=== PATIENT | male | born 1990 | race Two or more races ===

== ENCOUNTER 2023-04-01 00:40 | Emergency (ER) | payer BC, OTHER ==
[2023-04-01 00:50] VITALS: BP 119/72; RESP 20; BMI 36.8
[2023-04-01] MEDS ORDERED: SODIUM CHLORIDE 1,000 ML IV STA (02:14)
[2023-04-01] MEDS ORDERED: ACETAMINOPHEN 1000 MG/100 ML BAG IVPB ONE (02:14)
[2023-04-01] MEDS ORDERED: METOCLOPRAMIDE HCL INJECTION 10 MG/2 ML VIAL IVPUSH ONE (02:14)
[2023-04-01] MEDS ORDERED: ACETAMINOPHEN INJECTION 100 ML IVPB ONE (02:57)
[2023-04-01] MEDS ORDERED: METOCLOPRAMIDE HCL INJECTION 10 MG/2 ML VIAL ONE (02:57)
[2023-04-01 03:31] LABS: BASO % 0.5 % (0-2.0); EOS % 0.3 % (0-4.5); HEMATOCRIT 38.8 % (35.4-49); HEMOGLOBIN 13.6 GM/dL (11.7-16.9); LYMPH % 39.5 % (8-40); MCH 27.8 pg (25.7-33.7); MCHC 34.9 g/dl (32.0-35.9); MEAN CELL VOLUME 79.6 fl (80-96); MEAN PLT VOLUME 7.9 fl (7.5-11.1); MONO % 11.9 % (3.8-10.2); NEUT % 47.8 % (42.8-82.8); PLATELET COUNT 231 10^3/uL (134-434); RBC 4.88 M/mm3 (4.00-5.60); RDW 12.7 % (11.9-15.9); WHITE BLOOD COUNT 4.5 K/mm3 (4.0-10.0)
[2023-04-01 04:01] VITALS: TEMP 99.7
[2023-04-01 04:19] LABS: POTASSIUM 4.1 mmol/L (3.5-5.1)
[2023-04-01 04:22] LABS: CALCIUM 8.6 mg/dL (8.5-10.1)
[2023-04-01 04:23] LABS: ALBUMIN 3.8 g/dl (3.4-5.0); BLOOD UREA NITROGEN 13.1 mg/dL (7-18)
[2023-04-01 04:26] LABS: CREATININE 0.9 mg/dL (0.55-1.3)
[2023-04-01 04:27] LABS: TOT PROT 7.3 g/dl (6.4-8.2)
[2023-04-01 04:28] LABS: BILIRUBIN,TOTAL 0.6 mg/dL (0.2-1)
[2023-04-01 06:01] VITALS: PULSE 86
== END 2023-04-01 06:02 | disposition home or self-care (01) ==
LOC: JER 00:40
PROC: 3E033NZ Introduction of Analgesics, Hypnotics, Sedatives into Peripheral Vein, Percutaneous Approach (ICD-10-PCS; principal; 2023-04-01)
PROC: 3E033GC Introduction of Other Therapeutic Substance into Peripheral Vein, Percutaneous Approach (ICD-10-PCS; 2023-04-01)
PROC: 3E0337Z Introduction of Electrolytic and Water Balance Substance into Peripheral Vein, Percutaneous Approach (ICD-10-PCS; 2023-04-01)
DX: R51.9 Headache, unspecified (principal); M79.10 Myalgia, unspecified site; M25.50 Pain in unspecified joint; R50.9 Fever, unspecified; R11.0 Nausea; R26.81 Unsteadiness on feet; R00.0 Tachycardia, unspecified; R53.1 Weakness; R21 Rash and other nonspecific skin eruption; Z20.822 Contact with and (suspected) exposure to COVID-19
CPT/HCPCS: 0241U-QW; 36415; 80053; 85025; 86618; 86780; 87040; 99284-25